=== PATIENT | female | born 1940 | race Caucasian/White ===

== ENCOUNTER 2021-05-20 16:51 | Emergency (ER) | payer MEDICARE, MEDICAID ==
[~2021-05-20] VITALS: Ht 154.9 cm; Wt 48.1 kg
== END 2021-05-20 19:53 | disposition home or self-care (01) ==
LOC: ED 16:51
DX: C71.9 Malignant neoplasm of brain, unspecified (principal); Z76.0 Encounter for issue of repeat prescription